=== PATIENT | male | born 1995 | race Caucasian/White ===

== ENCOUNTER 2020-12-07 16:22 | Emergency (ER) | payer MEDICAID ==
[~2020-12-07] VITALS: Ht 185.4 cm; Wt 81.6 kg
[2020-12-07 16:24] VITALS: BP 162/109
--- NOTE | 2020-12-07 16:45 | NUR ---
PT BROUGHT BACK TO ROOM FROM TRIAGE. PT WAS SKATEBOARDING 3 DAYS AGO AND TWISTED HIS LEFT ANKLE. PT STATED THAT HE DID NOT EXPERIENCE ANY PAIN AT THE TIME, BUT THIS MORNING WAS UNABLE TO DORSI FLEX HIS FOOT AND WAS FEELING SHARP PAIN ON THE TOP OF HIS FOOT. PT DENIES ANY OTHER TRAUMA OR PAIN ELSEWHERE. Addendum: 12/07/20 at 1711 by OSWALDO PT BROUGHT BACK TO ROOM FROM TRIAGE. PT WAS SKATEBOARDING 3 DAYS AGO AND TWISTED HIS RIGHT ANKLE. PT STATED THAT HE DID NOT EXPERIENCE ANY PAIN AT THE TIME, BUT THIS MORNING WAS UNABLE TO DORSI FLEX HIS FOOT AND WAS FEELING SHARP PAIN ON THE TOP OF HIS FOOT. PT DENIES ANY OTHER TRAUMA OR PAIN ELSEWHERE.
--- NOTE | 2020-12-07 17:28 | NUR ---
DISCHARGE INSTRUCTIONS REVIEWED WITH PT. ALL QUESTIONS ANSWERED AT THIS TIME.
== END 2020-12-07 17:31 | disposition home or self-care (01) ==
LOC: ED 17:25
DX: S99.811A Other specified injuries of right ankle, initial encounter (principal); F17.210 Nicotine dependence, cigarettes, uncomplicated; X50.0XXA Overexertion from strenuous movement or load, initial encounter; Y93.89 Activity, other specified; Y92.410 Unspecified street and highway as the place of occurrence of the external cause; Y99.8 Other external cause status
CPT/HCPCS: 29515; 99283; 99406

== ENCOUNTER 2021-06-25 07:33 | Emergency (ER) | payer MEDICAID ==
[2021-06-25 07:36] VITALS: BP 160/136
--- NOTE | 2021-06-25 07:44 | NUR ---
ERPA AT BEDSIDE FOR EVALUATION.
[2021-06-25] MEDS ORDERED: COVID-19 VACC,MRNA(MODERNA)/PF 100 MCG/0.5ML IM-VACC ONE (08:00)
[2021-06-25] MEDS ORDERED: IBUPROFEN 600 MG TABLET PO ONE (08:00)
[2021-06-25] MEDS ORDERED: IBUPROFEN 600 MG TABLET ONE (08:02)
--- NOTE | 2021-06-25 08:20 | NUR ---
PATIENT REFUSED COVID VACCINE, ERPA NOTIFIED. Patient given discharge instructions and prescriptions and they have confirmed that they understand the instructions. Patient ambulatory with steady gait. NAD, all questions answered appropriately, denies additional needs at this time. No personal belongings left in room after discharge.
== END 2021-06-25 08:21 | disposition home or self-care (01) ==
LOC: ED 08:05
DX: K02.9 Dental caries, unspecified (principal)
CPT/HCPCS: 0011A; 91301; 99283